=== PATIENT | female | born 1985 | race Two or more races ===

== ENCOUNTER 2024-09-11 09:51 | Emergency (ER) | payer MEDICAID, SELFPAY ==
[2024-09-11 09:57] VITALS: BP 124/79; PULSE 92; RESP 18; TEMP 36.9; O2SAT 96
--- NOTE | 2024-09-11 10:13 | PD.EDRME ---
Rapid Medical Screening Exam RME Arrival date/time: 09/11/24 09:51 38-year-old female with no known medical history presents to the emergency room with a chief complaint of swelling, tenderness, foul-smelling discharge to her left side of her face x 2 days I have greeted and performed a focused initial assessment of this patient. A comprehensive ED assessment and evaluation of the patient, analysis of all test results, and completion of the medical decision making process will be conducted by additional ED providers. Chief Complaint: Dental/Oral/Throat Time Seen by Provider: 09/11/24 10:04 Vital signs: Vital Signs Temperature 98.5 F 09/11/24 09:57 Pulse Rate 92 09/11/24 09:57 Respiratory Rate 18 09/11/24 09:57 Blood Pressure 124/79 09/11/24 09:57 Pulse Oximetry (%) 96 09/11/24 09:57 Oxygen Delivery Method Room Air 09/11/24 09:57 Vital signs reviewed by provider: Yes
--- NOTE | 2024-09-11 10:37 | EDNOTE_ITS ---
ED Dental RME/HPI General Chief complaint: Dental/Oral/Throat Stated complaint: ABSCESS L) SIDE OF MOUTH X2D, DIFFICULTY BREATHING Time Seen by Provider: 09/11/24 10:04 Arrival date/time: 09/11/24 09:51 Limitations: no limitations RME / HPI RME / HPI Narrative: 09/11/24 09:51 38-year-old female with no known medical history presents to the emergency room with a chief complaint of swelling, tenderness, foul-smelling discharge to her left side of her face x 2 days I have greeted and performed a focused initial assessment of this patient. A comprehensive ED assessment and evaluation of the patient, analysis of all test results, and completion of the medical decision making process will be conducted by additional ED providers. DR. WATSON MAIN ED EVALUATION: 38 year old female with past medical history significant for dental issues with multiple upper back molar pulled presents to the Emergency Department with complaint of sinus tenderness onset 3-4 days, worsening. No fevers or chills. No other symptoms reported at this time. Related Data Previous Rx's ?Medication ?Instructions ?Recorded acetaminophen 500 mg capsule 1,000 mg (2 x 500 mg) PO TID #30 02/25/23 caps ibuprofen 600 mg tablet 600 mg PO TID PRN pain #30 t abs 02/25/23 hydrocodone 5 mg-acetaminophen 325 1 tab PO BID PRN pa in #6 tabs 08/12/23 mg tablet ibuprofen 600 mg tablet 600 mg PO Q6H #30 tabs 08/11 naproxen 500 mg tablet 500 mg PO BID PRN pain #30 t abs 11/08/23 amoxicillin-potassium clavulanate 1 tab PO BID 10 days #20 tabs 09/11/24 1,000 mg-62.5 mg tablet,ext.rel 12hr (Augmentin XR) hydrocodone 5 mg-acetaminophen 325 1 tab PO Q6H PRN pa in #14 tabs 09/11/24 mg tablet prednisone 20 mg tablet See Taper PO BID sinusitis # 10 tabs 09/11/24 triamcinolone acetonide 55 mcg 2 spray intranasal BID nasal 09/11/24 nasal spray aerosol (Nasacort) inflammation #16.9 mL Allergies Allergy/AdvReac Type Severity Reaction Status Date / Time No Known Allergies Allergy Verified 09/11/24 09:54 Review of Systems Review of Systems Systems Reviewed: All systems reviewed, normal except as documented Past Medical History Social History SMOKING STATUS: Never smoker SUBSTANCE USE: marijuana ALCOHOL: Never ED Exam General Limitations: Present no limitations General appearance: Present alert and in no apparent distress Head Head exam: Present atraumatic, normocephalic and other (ethmoid sinus tenderness, maxillary sinus tenderness) Eye Eye exam: Present normal appearance, PERRL and EOMI ENT ENT exam: Present normal exam, normal oropharynx and mucous membranes moist Expanded ENT Exam Mouth exam: Present other (Posterior upper teeth pulled; front and top teeth look okay; no swelling of the gums) Neck Neck exam: Present normal inspection, full ROM and trachea midline; Absent tenderness (supple) Chest Chest inspection: Present normal inspection and symmetric chest wall rise Respiratory Respiratory exam: Present normal lung sounds bilaterally Cardiovascular Cardiovascular exam: Present regular rate, normal rhythm and normal heart sounds Abdominal Exam Abdominal exam: Present soft and normal bowel sounds Extremities Exam Extremities exam: Present normal inspection and full ROM Back Exam Back exam: Present normal inspection and full ROM Neurological Exam Neurological exam: Present alert, oriented X3 and CN II-XII intact Psychiatric Psychiatric exam: Present normal affect and normal mood Skin Skin exam: Present warm, dry, intact and normal color Course Quality Measures none Orders Category Date Time Status CT facial bones w con Stat Exams 09/11/24 10:11 Stop Req Vital Signs Vital signs: Vital Signs Temperature 98.5 F 09/11/24 09:57 Pulse Rate 92 09/11/24 09:57 Respiratory Rate 18 09/11/24 09:57 Blood Pressure 124/79 09/11/24 09:57 Pulse Oximetry (%) 96 09/11/24 09:57 Oxygen Delivery Method Room Air 09/11/24 09:57 Dental / Oral MDM Narrative MDM Narrative:: Rupali Daniels am scribing for and in the presence of Dr. Watson. Patient data External records reviewed:: [facility] previous records (Reviewed last ED visit dated 11/08/23, discharged with the following: Gingival abscess) Clinical information provided by:: patient Social determinants that could affect healthcare access:: substance use (marijuana use) Patient has the following chronic illnesses:: dental issues with multiple upper back molar pulled How is presenting disease/condition affected by chronic disease/condition?: exacerbated by Evaluation data The following diagnostics were reviewed and interpreted by me:: other (specify) (none) Lab and/or radiology exams considered but not ordered:: none Interpretation Summary: n/a Medications / Prescriptions Medications or Prescriptions considered but not ordered:: none Medication administrations:: none Consultations Consultation(s) initiated? (list below): No Diagnosis Dental Differential Diagnosis: dental caries, toothache and other (Sinusitis) Most likely diagnosis given after review of the tests above:: Sinusitis Admission Indicated Admission indicated?: not indicated Admission Request Was there a request for admission?: No Disposition Plan Disposition Plan: Discharge Discharge Attestation Discharge Attestation: The patient and all family members were given an opportunity to ask questions and understood the discharge instructions. Discharge instructions specifically effects, indications for sooner follow up or return to the emergency department, and the expected course of current diagnosis. Patient condition: Stable Discharge Plan Plan Patient Disposition: HOME (Self Care) Prescriptions/Referrals Prescriptions/Med Rec: New amoxicillin-pot clavulanate [Augmentin XR] 1,000-62.5 mg tablet extended release 12 hr 1 tab PO BID 10 Days Qty: 20 1RF triamcinolone acetonide [Nasacort] 55 mcg aerosol,spray 2 spray intranasal BID MDD 4 sprays Qty: 16.9 0RF Rx Instructions: administer into each nostril prednisone 20 mg tablet See Taper PO BID MDD 2 Qty: 10 0RF Taper: Prednisone Taper 20 mg TWICE A DAY for 5 Days and 0 Hour 10 mg DAILY for 2 Days and 0 Hour 5 mg DAILY for 7 Days and 0 Hour hydrocodone-acetaminophen 5-325 mg tablet 1 tab PO Q6H MDD 4 PRN (Reason: pain) Qty: 14 0RF No Action hydrocodone-acetaminophen 5-325 mg tablet 1 tab PO BID MDD 10 PRN (Reason: pain) Qty: 6 0RF ibuprofen 600 mg tablet 600 mg PO Q6H Qty: 30 0RF ibuprofen 600 mg tablet 600 mg PO TID PRN (Reason: pain) Qty: 30 0RF acetaminophen 500 mg capsule 1,000 mg PO TID Qty: 30 0RF naproxen 500 mg tablet 500 mg PO BID PRN (Reason: pain) Qty: 30 0RF Problem List Clinical Impression: Sinusitis Patient/Caregiver Discharge Instructions Additional Instructions: Follow-up with your primary care doctor in 3 to 4 days. Take the medications as directed. Print Language: Turkish Stand Alone Forms: [facility]ine Award Info., Patient Portal Info Letter
== END 2024-09-11 10:39 | disposition home or self-care (01) ==
LOC: SERX 10:35
PROVIDERS: Emergency Provider Family Medicine; PCP Nurse Practitioner Family
DX: J32.9 Chronic sinusitis, unspecified (principal)
CPT/HCPCS: 80053; 83605; 84145; 85025; 87040; 99281

== ENCOUNTER 2024-11-02 00:52 | Emergency (ER) | payer MEDICAID, SELFPAY ==
[2024-11-02 01:05] VITALS: BP 138/93; PULSE 103; RESP 20; TEMP 36.8; O2SAT 97
[2024-11-02] MEDS: METOCLOPRAMIDE INJ 5 MG/ML VIAL 2 ML 10 MG IVP (01:47)
[2024-11-02] MEDS: SODIUM CHLORIDE 0.9% 1000 ML 1,000 ML 999 ML IV (01:48)
[2024-11-02] MEDS: DIAZEPAM INJ 5 MG/ML VIAL 2 ML 10 MG IVP (01:48)
--- NOTE | 2024-11-02 01:51 | EKG_ITS ---
[facility] Test Date: 2024-11-02 Pat Name: TERESA SNOW Department: Room: - Gender: Female [employer]key Locomotive Operator: : 1985 Requested By: Luca Wesley Order Number: [id number] Reading MD: Luca Wesley Measurements Intervals [place] Rate: 94 P: 59 CT: 147 QRS: 56 QRSD: 109 T: 45 QT: 395 QTc: 494 Interpretive Statements SINUS RHYTHM No previous ECG available for comparison /store/S0/[id number]/ecg/[id number].pdf
[2024-11-02 01:58] LABS: Basophils # (Auto) 0.1 Thou/mm3 (0.0-0.2); Basophils % (Auto) 0 % (0-2.5); Eosinophils # (Auto) 0.2 Thou/mm3 (0.0-0.5); Eosinophils % (Auto) 1 % (0-10); Hematocrit 40.1 % (36.0-46.0); Hemoglobin 14.5 g/dL (12.0-16.0); Immature Granulocytes Auto 0.05 Thou/mm3 (0.00-0.00); Lymphocytes # (Auto) 1.0 Thou/mm3 (1.0-4.8); Lymphocytes % (Auto) 8 % (10-50); Mean Corpuscular HGB Conc 36.2 g/dl (31.0-37.0); Mean Corpuscular Hemoglobin 29.2 pg (25.0-35.0); Mean Corpuscular Volume 81 fL (80-100); Monocytes # (Auto) 0.7 Thou/mm3 (0.0-0.8); Monocytes % (Auto) 6 % (0-12); Neutrophils # (Auto) 10.6 Thou/mm3 (1.8-7.7); Neutrophils % (Auto) 84 % (37-80); Nucleated Red Blood Cell # 0.00 Thou/mm3 (0.00-0.00); Nucleated Red Blood Cell % 0 /100 WBC (0); Platelet Count 272 Thou/mm3 (140-440); RDW Standard Deviation 40.1 fL (36.4-46.3); Red Blood Count 4.97 Miln/mm3 (4.00-5.20); White Blood Count 12.6 Thou/mm3 (3.6-11.0)
[2024-11-02 03:00] VITALS: BP 116/65; PULSE 85; RESP 21; O2SAT 96
[2024-11-02 03:09] LABS: Collection Type, Urine Clean Catch; RBC,Urine 0 /hpf (0-3); Squamous Epithelial Cell,Urine 0 /hpf (0-5); WBC,Urine 0 /hpf (0-5)
--- NOTE | 2024-11-02 03:17 | PC.NURSE ---
WE HAD DOWN TIME FROM [id number].
[2024-11-02 03:30] LABS: Alanine Aminotransferase 15 U/L (10-49); Albumin, Serum 4.4 gm/dL (3.5-5.0); Albumin/Globulin Ratio 1.4 (1.2-2.2); Alkaline Phosphatase 61 U/L (46-116); Anion Gap 11 (7-16); Aspartate Amino Transferase 18 U/L (0-34); BUN/Creatinine Ratio 15 Ratio (12-20); Bilirubin,Total 0.8 mg/dL (0.3-1.2); Blood Urea Nitrogen 15 mg/dL (9-23); Calcium 9.1 mg/dL (8.3-10.6); Calcium (Corrected) 9.1 mg/dL (8.5-10.1); Carbon Dioxide 19.8 mMol/L (20.0-31.0); Chloride 108 mMol/L (98-107); Creatinine (Component) 1.0 mg/dL (0.6-1.3); Globulin 3.1 gm/dL (2.3-3.5); Glucose 183 mg/dL (74-106); Lipase 52 U/L (12-53); Osmolality,Calculated 283 (275-295); Potassium 3.6 mMol/L (3.4-5.1); Sodium 139 mMol/L (136-145); Total Protein 7.5 gm/dL (5.7-8.2); eGFR > 60 See Note
[2024-11-02 03:37] LABS: Bilirubin,Urine 2+ (Negative); Blood,Urine Negative (Negative); Clarity,Urine Clear (Clear/Hazy); Color,Urine Drk Yellow (Lt Yel-Yel); Glucose, Urine Negative (Negative); Ketones,Urine 1+ (Negative); Leukocyte Esterase,Urine Negative (Negative); Nitrite,Urine Positive (Negative); PH,Urine 6.0 (5.0-7.0); Protein,Urine 2+ (Neg - Trace); Specific Gravity,Urine >= 1.030 (1.001-1.035); Urobilinogen,Urine 1.0 mg/dL (0.0-1.0)
[2024-11-02 03:40] LABS: Culture Indicated,Urine Yes
--- NOTE | 2024-11-02 03:41 | PD.EDNV ---
Nausea/Vomit./Diarrhea-RME/HPI General Chief complaint: Abdominal Pain Stated complaint: UPPER ABD PAIN,N/V Time Seen by Provider: 11/02/24 01:10 Arrival date/time: 11/02/24 00:52 39F with history of marijuana use and anxiety presents to ED with 2 days of N/V, epigastric pain, and non-bloody diarrhea. Limitations: no limitations Related Data Previous Rx's ?Medication ?Instructions ?Recorded acetaminophen 500 mg capsule 1,000 mg (2 x 500 mg) PO TID #30 02/25/23 caps ibuprofen 600 mg tablet 600 mg PO TID PRN pain #30 tabs 02/25/23 hydrocodone 5 mg-acetaminophen 325 1 tab PO BID PRN pain #6 tabs 08/12/23 mg tablet ibuprofen 600 mg tablet 600 mg PO Q6H #30 tabs 08/12/23 naproxen 500 mg tablet 500 mg PO BID PRN pain #30 tabs 11/08/23 amoxicillin-potassium clavulanate 1 tab PO BID 10 days #20 tabs 09/11/24 1,000 mg-62.5 mg tablet,ext.rel 12hr (Augmentin XR) hydrocodone 5 mg-acetaminophen 325 1 tab PO Q6H PRN pain #14 tabs 09/11/24 mg tablet prednisone 20 mg tablet See Taper PO BID sinusitis #10 tabs 09/11/24 triamcinolone acetonide 55 mcg 2 spray intranasal BID nasal 09/11/24 nasal spray aerosol (Nasacort) inflammation #16.9 mL ondansetron 4 mg disintegrating 4 mg PO Q8H PRN nausea and 11/02/24 tablet vomiting #14 tabs Allergies Allergy/AdvReac Type Severity Reaction Status Date / Time No Known Allergies Allergy Verified 11/02/24 00:53 Review of Systems Review of Systems Systems Reviewed: All systems reviewed, normal except as documented Constitutional Constitutional: Reports system reviewed and no additional complaints, except as documented, Denies fever(s) and Denies headache(s) ENT Ears, Nose, Mouth, and Throat: Denies disequilibrium and Denies headache(s) Cardiovascular Cardiovascular: Reports system reviewed and no additional complaints, except as documented, Denies chest pain and Denies dyspnea Respiratory Respiratory: Reports system reviewed and no additional complaints, except as documented, Denies cough and Denies dyspnea Gastrointestinal Gastrointestinal: Reports system reviewed and no additional complaints, except as documented, Reports as per HPI, Reports abdominal pain, Reports diarrhea, Reports nausea and Reports vomiting Neurologic Neurologic: Reports system reviewed and no additional complaints, except as documented, Denies confusion, Denies disequilibrium and Denies headache(s) Psychiatric Psychiatric: Denies confusion Past Medical History Past Medical History CARDIAC: Negative Congestive Heart Failure RESPIRATORY: Negative Chronic Obstructive Pulmonary Disease (COPD) GENITOURINARY: Negative Renal Disease ENDOCRINE: Negative Diabetes Mellitus Type 1 or Diabetes Mellitus Type 2 Social History SMOKING STATUS: Current every day smoker SUBSTANCE USE: marijuana ED Exam General Limitations: Present no limitations General appearance: Present alert, in no apparent distress and anxious Head Head exam: Present atraumatic Eye Eye exam: Present normal appearance, PERRL and EOMI ENT ENT exam: Present normal exam, normal oropharynx and mucous membranes moist Neck Neck exam: Present normal inspection, full ROM and trachea midline Chest Chest inspection: Present normal inspection and symmetric chest wall rise Respiratory Respiratory exam: Present normal lung sounds bilaterally Cardiovascular Cardiovascular exam: Present regular rate, normal rhythm and normal heart sounds Abdominal Exam Abdominal exam: Present soft and normal bowel sounds Extremities Exam Extremities exam: Present normal inspection and full ROM Back Exam Back exam: Present normal inspection and full ROM Neurological Exam Neurological exam: Present alert, oriented X3 and CN II-XII intact Psychiatric Psychiatric exam: Present normal affect and normal mood Skin Skin exam: Present warm, dry, intact and normal color Course Quality Measures none Orders Category Date Time Status EKG (ED ONLY) *Do not use* NOW Care 11/02/24 01:51 Completed Insert IV NOW Care 11/02/24 01:15 Active EKG (ED Only) Stat Exams 11/02/24 01:51 Draft CBC Stat Lab 11/02/24 01:36 Completed CMP [Comprehensive Metabolic Panel] Stat Lab 11/02/24 01:36 Completed Drug Screen,Urine Stat Lab 11/02/24 01:59 Completed HCG Qualitative,Urine Stat Lab 11/02/24 01:59 Completed Lipase Stat Lab 11/02/24 01:36 Completed Urinalysis, C/S if Indicated Stat Lab 11/02/24 01:59 Completed Urine Culture Stat Lab 11/02/24 01:59 Received Diazepam Inj [Valium Inj] Med 11/02/24 01:15 Discontinued 10 mg IVP X1 ONE Diazepam [Valium] Med 11/02/24 01:10 Discontinued 10 mg PO X1 ONE Dicyclomine [Bentyl] Med 11/02/24 01:10 Discontinued 10 mg PO X1 ONE DiphenhydrAMINE INJ [Benadryl Inj] Med 11/02/24 01:15 Discontinued 12.5 mg IVP X1 ONE Famotidine [Pepcid] Med 11/02/24 01:10 Discontinued 40 mg PO X1 ONE Metoclopramide Inj [Reglan Inj] Med 11/02/24 01:15 Discontinued 10 mg IVP X1 ONE Metoclopramide [Reglan] Med 11/02/24 01:10 Discontinued 10 mg PO X1 ONE Pantoprazole Inj [Protonix Inj] Med 11/02/24 03:44 Discontinued 40 mg IVP X1 ONE Ringers Lactated 1000 ml [Lactated Ringers] 1,000 ml Med 11/02/24 03:44 Discontinued IV 999 mls/hr Sodium Chloride 0.9% 1000 ml [Ns] 1,000 ml Med 11/02/24 01:16 Discontinued IV 999 mls/hr Vital Signs Vital signs: Vital Signs Temperature 98.2 F 11/02/24 01:05 Pulse Rate 103 H 11/02/24 01:05 Respiratory Rate 20 11/02/24 01:05 Blood Pressure 138/93 H 11/02/24 01:05 Pulse Oximetry (%) 97 11/02/24 01:05 Oxygen Delivery Method Room Air 11/02/24 01:05 O2 at 97% on RA and WNLs Nausea/Vomiting/Diarrhea MDM Narrative MDM Narrative:: 39F with history of marijuana use and anxiety presents to ED with 2 days of N/V, epigastric pain, and non-bloody diarrhea. Physical exam reveals no ab tenderness. Patient is afebrile, alert, but very anxious/crying. Minimal leukocytosis. CMP and lipase unremarkable. UA/HCG neg. Marijuana +. Patient felt better after meds. PO challenge passed. Patient data External records reviewed:: [facility] previous records Clinical information provided by:: patient Social determinants that could affect healthcare access:: mental health Patient has the following chronic illnesses:: anxiety/marijuana How is presenting disease/condition affected by chronic disease/condition?: exacerbated by Evaluation data The following diagnostics were reviewed and interpreted by me:: lab results Lab and/or radiology exams considered but not ordered:: ordered Interpretation Summary: above Medications / Prescriptions Medications / Prescriptions considered but not ordered:: ordered Medication administrations:: Medication Administration History Discontinued Medications Diazepam (Diazepam 5 Mg Tablet) 10 mg PO X1 ONE Stop: 11/02/24 01:11 Last Admin: 11/02/24 01:48 Dose: Not Given Documented By: ARNOLD Non-Admin Reason: Duplicate Medication on eMAR Diazepam (Diazepam Inj 5 Mg/Ml Vial 2 Ml) 10 mg IVP X1 ONE Stop: 11/02/24 01:16 Last Admin: 11/02/24 01:48 Dose: 10 mg Documented By: ARNOLD Dicyclomine HCl (Dicyclomine 10 Mg Capsule) 10 mg PO X1 ONE Stop: 11/02/24 01:11 Last Admin: 11/02/24 01:48 Dose: Not Given Documented By: ARNOLD Non-Admin Reason: Duplicate Medication on eMAR Diphenhydramine HCl (Diphenhydramine Inj 50 Mg/Ml Vial) 12.5 mg IVP X1 ONE Stop: 11/02/24 01:16 Last Admin: 11/02/24 01:48 Dose: 12.5 mg Documented By: ARNOLD Famotidine (Famotidine 20 Mg Tablet) 40 mg PO X1 ONE Stop: 11/02/24 01:11 Last Admin: 11/02/24 01:49 Dose: Not Given Documented By: ARNOLD Non-Admin Reason: Duplicate Medication on eMAR Sodium Chloride (Ns) 1,000 mls @ 999 mls/hr IV .Q1H1M ONE Stop: 11/02/24 02:16 Last Infusion: 11/02/24 03:00 Dose: Infused Documented By: Admin: 11/02/24 01:48 Dose: 999 mls/hr Documented By: ARNOLD Lactated Ringer's (Lactated Ringers) 1,000 mls @ 999 mls/hr IV .Q1H1M ONE Stop: 11/02/24 04:44 Last Admin: 11/02/24 04:27 Dose: 999 mls/hr Documented By: MARITZA Metoclopramide HCl (Metoclopramide 5 Mg Tablet) 10 mg PO X1 ONE Stop: 11/02/24 01:11 Last Admin: 11/02/24 01:49 Dose: Not Given Documented By: ARNOLD Non-Admin Reason: Duplicate Medication on eMAR Metoclopramide HCl (Metoclopramide Inj 5 Mg/Ml Vial 2 Ml) 10 mg IVP X1 ONE; Protocol Stop: 11/02/24 01:16 Last Admin: 11/02/24 01:47 Dose: 10 mg Documented By: ARNOLD Pantoprazole Sodium (Pantoprazole Inj 40 Mg Vial) 40 mg IVP X1 ONE Stop: 11/02/24 03:45 Last Admin: 11/02/24 04:27 Dose: 40 mg Documented By: MARITZA above Consultations Consultation(s) initiated? (list below): No Diagnosis Nausea Differential Diagnosis: traveler's diarrhea, food poisoning, gastroenteritis, clostridium difficile infection, drug-induced nausea and vomiting and dehydration Most likely diagnosis given after review of the tests above:: gastroenteritis Admission Indicated Admission indicated?: not indicated Admission Request Was there a request for admission?: No Disposition Plan Disposition Plan: Discharge Discharge Attestation Discharge Attestation: The patient and all family members were given an opportunity to ask questions and understood the discharge instructions. Discharge instructions specifically effects, indications for sooner follow up or return to the emergency department, and the expected course of current diagnosis. Patient condition: Stable Discharge Plan Plan Patient Disposition: HOME (Self Care) Discharge Disposition comment: Stable Prescriptions/Referrals Prescriptions/Med Rec: New ondansetron 4 mg tablet,disintegrating 4 mg PO Q8H PRN (Reason: nausea and vomiting) Qty: 14 0RF No Action hydrocodone-acetaminophen 5-325 mg tablet 1 tab PO BID MDD 10 PRN (Reason: pain) Qty: 6 0RF ibuprofen 600 mg tablet 600 mg PO Q6H Qty: 30 0RF ibuprofen 600 mg tablet 600 mg PO TID PRN (Reason: pain) Qty: 30 0RF acetaminophen 500 mg capsule 1,000 mg PO TID Qty: 30 0RF naproxen 500 mg tablet 500 mg PO BID PRN (Reason: pain) Qty: 30 0RF amoxicillin-pot clavulanate [Augmentin XR] 1,000-62.5 mg tablet extended release 12 hr 1 tab PO BID 10 Days Qty: 20 1RF triamcinolone acetonide [Nasacort] 55 mcg aerosol,spray 2 spray intranasal BID MDD 4 sprays Qty: 16.9 0RF Rx Instructions: administer into each nostril prednisone 20 mg tablet See Taper PO BID MDD 2 Qty: 10 0RF Taper: Prednisone Taper 20 mg TWICE A DAY for 5 Days and 0 Hour 10 mg DAILY for 2 Days and 0 Hour 5 mg DAILY for 7 Days and 0 Hour hydrocodone-acetaminophen 5-325 mg tablet 1 tab PO Q6H MDD 4 PRN (Reason: pain) Qty: 14 0RF Referrals: Delvin Jackson MD [Primary Care Provider] - In 1 week Problem List Clinical Impression: Gastroenteritis Patient/Caregiver Discharge Instructions Education Materials: ED Diarrhea, Viral (Adult) Additional Instructions: Please follow-up with PCP within 24-48 hours and return immediately if symptoms worsen. Keep hydrated. Advance diet as tolerated. Print Language: Burundian Stand Alone Forms: Patient Portal Info Letter PA/DRAWER MAKER Supervising Physician PA/DRAWER MAKER Supervising Physician: Dr. García
[2024-11-02 03:43] LABS: HCG Qualitative,Urine Negative
[2024-11-02 03:58] VITALS: BP 119/60; PULSE 87; RESP 20; TEMP 36.7; O2SAT 98
[2024-11-02 04:00] VITALS: BP 107/63; PULSE 86; RESP 18; O2SAT 94
[2024-11-02 04:24] LABS: Amphetamine/Methamp Scrn,U Negative (Negative); Barbiturate Screen,Urine Negative (Negative); Benzodiazepines Screen,Urine Negative (Negative); Benzoylecgonine Screen, Ur Negative (Negative); Fentanyl Screen,Urine Negative (Negative); Opiate Screen,Urine Negative (Negative); THC Screen,Urine Positive (Negative)
[2024-11-02] MEDS: RINGERS LACTATED 1000 ML 1,000 ML 999 ML IV (04:27)
[2024-11-02 05:00] VITALS: BP 100/61; PULSE 75; RESP 21; O2SAT 98
--- NOTE | 2024-11-02 05:28 | PC.NURSE ---
pt feeling much better. tolerating po fluids withdrew CORTEZ.
== END 2024-11-02 05:41 | disposition home or self-care (01) ==
PROVIDERS: Physician Assistant; Emergency Provider Emergency Medicine; PCP Family Medicine
DX: K52.9 Noninfective gastroenteritis and colitis, unspecified (principal); D72.829 Elevated white blood cell count, unspecified
CPT/HCPCS: 36415; 80053; 80307; 81001; 81025; 83690; 85025; 87086; 93005; 96361; 96374; 96375; 99284; J1200; J2470; J2765; J3360; J7030; J7120